=== PATIENT | female | born 1985 | race Two or more races ===

== ENCOUNTER 2021-06-14 16:35 | Emergency (ER) | payer MEDICAID ==
[~2021-06-14] VITALS: Ht 152.4 cm; Wt 53.5 kg
[2021-06-14 16:43] VITALS: BP 122/68
--- NOTE | 2021-06-14 17:08 | NUR ---
PT SEEN AND EXAMINED BY .
--- NOTE | 2021-06-14 17:18 | NUR ---
TREASURY DIRECTOR AT BEDSIDE FOR XRAY.
[2021-06-14] MEDS ORDERED: IBUPROFEN 600 MG TABLET PO ONE (17:30)
[2021-06-14] MEDS ORDERED: IBUPROFEN 600 MG TABLET ONE (17:38)
--- NOTE | 2021-06-14 18:52 | NUR ---
Patient given written and verbal discharge instructions. Patient verbalizes understanding of instructions. Patient is ambulatory with steady gait. Refuses offer of assisted placement. Patient given list of available shelters in surrounding area.
== END 2021-06-14 18:52 | disposition home or self-care (01) ==
LOC: ER 16:42
DX: G89.29 Other chronic pain (principal); M25.561 Pain in right knee
CPT/HCPCS: 73564-TC